=== PATIENT | female | born 1980 | race Caucasian/White ===

== ENCOUNTER 2017-02-12 14:46 | Outpatient (CLI) | payer OTHER ==
[2015-09-27 14:11] VITALS: BP 107/75
== END 2017-02-12 14:48 ==
LOC: LAB 14:46
PROVIDERS: ATTEND Family Medicine
DX: E11.9 Type 2 diabetes mellitus without complications (principal); E03.9 Hypothyroidism, unspecified
CPT/HCPCS: 36415; 83036; 84443

== ENCOUNTER 2017-03-28 11:06 | Outpatient (CLI) | payer OTHER ==
[2015-09-27 14:11] VITALS: BP 107/75
[2017-03-28 12:27] LABS: BASOPHILS % 1.4 (0.0-1.5); EOSINOPHILS % 5.5 % (0.0-6.8); MEAN CORPUSCULAR HEMOGLOBIN 30.7 pg (28.0-34.0); MEAN CORPUSCULAR VOLUME 92.3 fl (80.0-100.0); MONOCYTES % 4.2 % (0.0-11.0); NEUTROPHILS # 3.6 # k/uL (1.4-7.7)
[2017-03-28 12:36] LABS: eGFR (African) > 60; eGFR (Non-African) > 60
--- NOTE | 2017-03-28 15:12 | Diagnostic Imaging Report ---
JOSLYN ELAM [facility] [address] [facility] [address] [address] Report Submission Date: Mar 28, 2017 1:03:42 PM CDT Patient Study Name: JESSICA HIGH Date: Mar 28, 2017 12:18:35 PM CDT Modality Type: CR Gender: F Description: LOWER EXTREMITY : 80 Institution: [facility] Physician: JOSLYN ELAM Examination: Plain film foot History: Autoimmune disease Comparison exams: None available Findings: 2 views of the right and left feet demonstrate normal cortical margins. No fracture. No dislocation. No articular abnormalities. No soft tissue abnormality. Impression: No acute osseous abnormality Electronically signed on Mar 28, 2017 1:03:42 PM CDT by: Kyler AMAYA
--- NOTE | 2017-03-28 15:12 | Diagnostic Imaging Report ---
JOSLYN ELAM [facility] [address] [facility] [address] [place] [address]. [id number] Report Submission Date: Mar 28, 2017 1:05:01 PM CDT Patient Study Name: JESSICA HIGH Date: Mar 28, 2017 12:26:12 PM CDT Modality Type: CR Gender: F Description: PELVIS : 80 Institution: [facility] Physician: JOSLYN ELAM Examination: Plain film hip History: Autoimmune disease Comparison exams: None available Findings: 2 views of the right and left hips demonstrate normal cortical margins. No fracture. No dislocation. No articular abnormalities. No soft tissue abnormality. Few pelvic phleboliths. Impression: No acute osseous abnormality Electronically signed on Mar 28, 2017 1:05:01 PM CDT by: Kyler AMAYA
--- NOTE | 2017-03-28 15:13 | Diagnostic Imaging Report ---
JOSLYN ELAM [facility] [address] [facility] [address] [address] Report Submission Date: Mar 28, 2017 1:02:51 PM CDT Patient Study Name: JESSICA HIGH Date: Mar 28, 2017 12:11:43 PM CDT Modality Type: CR Gender: F Description: UPPER EXTREMITY : 80 Institution: [facility] Physician: JOSLYN ELAM Examination: Plain film hand History: Autoimmune disease Comparison exams: None available Findings: 3 views of the right and left hands demonstrate normal cortical margins. No fracture. No dislocation. No articular abnormalities. No soft tissue abnormality. Impression: No acute osseous abnormality Electronically signed on Mar 28, 2017 1:02:51 PM CDT by: Kyler AMAYA
--- NOTE | 2017-03-31 12:23 | CONSULTATION REPORT ---
REFERRING PHYSICIAN: Isabell Mukherjee MD CONSULTING PHYSICIAN: Austin Sun MD Dear Dr. Mukherjee: HISTORY OF PRESENT ILLNESS: I had the pleasure of meeting Killian Alvarado. This is a 36-year-old white woman who is coming to see me for joint pain. It first occurred at around age 18. Onset has been gradual. She rates it as severe and it involves the hands, knees , ankles, as well as both groins. It is causing her difficulty with all activities of daily living including gripping, walking, and getting in and out of a chair. It seems to be worse at the end of the day but she does have some morning stiffness. She has noted some swelling and some muscle tenderness. The pain again could be 8 over 10 and she has difficulty dressing and getting out of bed, and lots of difficulty with just simply walking. She has difficulty washing, bending, turning her facets on and off, getting in and out of a car, and is unable to walk any significant distance and it also interferes with her sleep. PAST MEDICAL HISTORY: 1. Patient was diagnosed with diabetes in 2012. 2. History of abnormal liver functions and is being followed by [facility]. 3. She has chronic anemia. 4. Chronic headaches. 5. Hypothyroidism. 6. Hypertriglyceridemia. 7. Hyperlipidemia. 8. Gastroparesis. 9. History of Lichen planus with previous high-dose steroid therapy followed by Dr. Candace Isaac. 10. She has had 4 pregnancies. 11. Four C-sections. 12. Zero miscarriages. 13. Cholecystectomy in 2000. . SOCIAL HISTORY: Patient does smoke. She does not drink. She is . 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 FAMILY HISTORY: Father has rheumatoid arthritis and grandma with systemic lupus. ALLERGIES: She reports drug allergies to: 1. Sulfa medications. 2. IV and MRI contrast. 3. Latex. PRESENT MEDICATIONS: 1. Fenofibrate 145 mg daily. 2. Atorvastatin 10 mg daily. 3. Omeprazole 10 mg daily. 4. Levothyroxine 75 mcg daily. 5. Sertraline 100 mg 1-1/2 tablets daily. 6. Levemir 85 units daily. 7. Humulin 25 units daily. REVIEW OF SYSTEMS: Positive for the above, as well as fatigue and weakness, swelling of the legs, nausea, headaches, hands sensitivity, anxiety, depression, and difficulty sleeping. Otherwise, she has had no red painful eyes, dry eyes, no dry mouth or mouth sores. No difficulty swallowing. No hoarseness. She has had no chest pain, shortness of breath, cough, or wheezing. No history of pleurisy. She has had no vomiting. No dark stools or bloody stools or diarrhea. She has had no urinary symptoms such has frothy urine or any vaginal rash or ulcers. She has had no skin rashes, hives, photosensitivity, or color changes in the hands or feet in the cold. PHYSICAL EXAMINATION: GENERAL: She looks well. VITAL SIGNS: Weight is 186. Height: 5 feet 7 inches. T: 97.8, R: 18, heart rate 65, BP: 111/68. HEENT: No alopecia. No stomatitis or glossitis. Good salivary pool. Dentition is in good repair. No parotid or submandibular swelling. No thyroid enlargement. LUNGS: Clear bilaterally with no crackles or wheezing. HEART: Regular rhythm. ABDOMEN: Soft. VASCULAR: No edema or cyanosis. PERIPHERAL JOINTS: No deformities, but just some tenderness at the PIPs and MCPs. Wrists, however, had significant tenderness to palpation. They felt a little warm. 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 Elbows were tender but had full range of motion in extension, flexion, and supination. Shoulders with good abduction and rotation. AC and SC joints were unremarkable. She had pain on internal rotation of both hips and referred to the groin and on the right to her right knee. Both knees were unremarkable. Ankles, hindfoot, midfoot, and forefoot exam was unremarkable. Skin and Nails: No rashes. Nails were unremarkable. IMPRESSION: 1. Polyarthritis. 2. This is an interesting lady who may have a constellation of autoimmune phenomenon. PLAN: I will proceed with [facility] testing. I am updating her CBC, CMP, and sedimentation rate. I will see her back in 4 weeks when I return. We will contemplate the use of Plaquenil if appropriate. DISCUSSION: She was seen by [facility] and at one point a diagnosis of lupus was entertained. She tells me she also had a positive rheumatoid factor on one occasion. No previous x-rays for further investigation was undertaken, so I will proceed as such. 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 Thank you very much. Best regards, cc: Dr. Isabell AMAYA
== END 2017-03-28 11:07 ==
LOC: RHEU 11:06
PROVIDERS: ATTEND Internal Medicine
DX: M13.0 Polyarthritis, unspecified (principal)
CPT/HCPCS: 36415; 73521; 80053; 85025; 85651; 86140; G0463

== ENCOUNTER 2017-04-25 11:05 | Outpatient (CLI) | payer OTHER ==
[2015-09-27 14:11] VITALS: BP 107/75
--- NOTE | 2017-04-25 15:22 | OP Clinic Progress Note ---
REFERRING PHYSICIAN: Dr. Isabell Mukherjee Dear Dr. Mukherjee: REASON FOR VISIT: I had the pleasure of seeing Killian Alvarado in follow up. She has significant joint pain and she rates it at 9 over 10 and it involves the hands, feet, and wrists, as well as ankles. Since I last saw her, she has had no new medical problems. Past medical history is again reviewed and unchanged from my note of March 28 and the same social history, family history, allergies, and present medications. REVIEW OF SYSTEMS: No fevers, chills, sweats, chest pain, shortness of breath, cough, wheezing, nausea, vomiting, or diarrhea. PHYSICAL EXAMINATION: GENERAL: She looks well. VITAL SIGNS: Height: 5 feet 7 inches. Weight: 184. T: 98, R: 12, heart rate 67, BP: 117/76. HEENT: No mal or rash. No alopecia. LUNGS: Clear. HEART: Regular rhythm. ABDOMEN: Soft. VASCULAR: No edema or cyanosis. PERIPHERAL JOINTS: No synovitis, just some tenderness at the PIPs, MCPs, and wrists. DIAGNOSTIC STUDIES: Review of her x-rays show no erosions. Her labs are consistent with probably lupus and a double stranded DNA confirmed by Crithidia of over 1000. Other extractable nuclear antigens were negative. Thyroid antibodies were present. CBC was within normal limits. Sedimentation rate was slightly elevated to 25. Creatinine normal at 0.5. AST was 106 and ALT was 171. Cholesterol and triglycerides were elevated, type 4 overt. Urinalysis had no protein, but did have 2+ blood. IMPRESSION: Patient does probably suffer from lupus, mainly manifesting as joint pain. PLAN: I am instituting Plaquenil 200 mg twice a day and I will re-evaluate her in 3 months. I have asked her to stop taking Tylenol in view of her liver functions and she has continued follow up with the gastrointestinal clinic at the [facility]. Thank you very much for the opportunity to take care of your patients. Best regards, cc: Dr. Isabell AMAYA
== END 2017-04-25 11:15 ==
LOC: RHEU 11:05
PROVIDERS: ATTEND Internal Medicine
DX: M25.50 Pain in unspecified joint (principal)
CPT/HCPCS: 99213; G0463

== ENCOUNTER 2017-05-19 13:14 | Outpatient (CLI) | payer OTHER ==
[2015-09-27 14:11] VITALS: BP 107/75
[2017-05-19 14:28] LABS: eGFR (African) > 60; eGFR (Non-African) > 60
== END 2017-05-19 13:15 ==
LOC: LAB 13:14
PROVIDERS: ATTEND Family Medicine
DX: E11.9 Type 2 diabetes mellitus without complications (principal)
CPT/HCPCS: 36415; 80053; 80061; 82043; 83036

== ENCOUNTER 2017-06-12 20:30 | Emergency (ER) | payer OTHER ==
--- NOTE | 2017-06-12 21:20 | ED Physician Documentation ---
Abdominal Pain - HISTORIAN Historian: patient - HPI Chief Complaint: Abdominal Pain Onset: days ago (7) Duration: worse (3-4 days) Timing: worse Context: denies: out of country travel, bad food, recent trauma Severity: severe Quality: pain Associated Symptoms: nausea. denies: vomiting, coffee ground emesis, bloody emesis, diarrhea, bloody stools, grossly bloody stools, sweating, loss of appetite, chest pain, testicular pain, neck pain Exacerbated by: food Relieved by: nothing Further Comments: yes (36 year old female patient presents with epigastric and LUQ pain. Patient reports pain started 7 days ago and has become progressively worse the past 3-4 days. States her pain is worse with eating solid food. States she is able to keep down liquids. C/O pain radiating into her back, c/o nausea.) - ROS CONST: recent illness (7 days - abd pain) GI/: none CVS/RESP: none EYES/ENT: none MS/SKIN/LYMPH: none NEURO/PSYCH: none - SOCIAL HX Smoking History: cigarettes - FAMILY HX Family History: denies: none - PAST HX Past History: other (IDDM, hypothyroidism, pancreatitis, anemia, elevated triglycerides, depression, lupus) Other History: diabetes Type 2, hyperlipidemia Surgeries/Procedures: colon, Home Medications: Ambulatory Orders Medication Instructions Recorded Atorvastatin Calcium 10 mg PO QDAY 06/12/17 Empagliflozin [Jardiance] 10 mg PO QDAY 06/12/17 Hydroxychloroquine Sulfate 400 mg PO QDAY 06/12/17 Promethazine HCl [Phenergan] 25 mg PO Q6H PRN #30 tablet 06/12/17 Allergies/Adverse Reactions: Allergies Allergy/AdvReac Type Severity Reaction Status Date / Time latex Allergy Unknown Verified 06/12/17 20:59 Sulfa (Sulfonamide Allergy Unknown Verified 06/12/17 20:59 Antibiotics) Penicillins Allergy Verified 06/12/17 20:59 iv contrast Allergy Unknown Uncoded 06/12/17 20:59 - VITAL SIGNS Vital Signs: Vital Signs Temp Pulse Resp BP Pulse Ox 97.8 F 72 16 104/62 98 06/12/17 22:35 06/12/17 22:35 06/12/17 22:35 06/12/17 22:35 06/12/17 22:35 - REVIEWED ASSESSMENTS Nursing Assessment Reviewed: Yes Vitals Reviewed: Yes Progress - Progress Progress: Reviewed lab results with patient. Patient continued to c/o nausea. Promethazine IM given. Reviewed discharge instructions - clear liquids and ADAT. Follow up with GI. Patient scheduled for liver biopsy with GI. ED Results Lab/Radiology - Lab Results Lab Results: Lab Results 06/12/17 06/12/17 06/12/17 21:33 21:33 21:18 WBC 6.97 K/ul K/ul (4.00-12.00) RBC 4.40 M/ul M/ul (3.90-5.20) Hgb 13.1 g/dL g/dL (12.0-16.0) Hct 39.5 % % (34.5-46.5) MCV 89.6 fl fl (80.0-100.0) MCH 29.8 pg pg (28.0-34.0) MCHC 33.2 g/dL g/dL (30.0-36.0) RDW 12.9 % % (11.3-14.3) Plt Count 257 K/mm3 K/mm3 (130-400) Neut % (Auto) 53.6 % % (39.0-79.0) Lymph % (Auto) 32.2 % % (16.0-50.0) [place] % (Auto) 10.3 % % (0.0-11.0) Eos % (Auto) 1.5 % % (0.0-6.8) Baso % (Auto) 0.9 (0.0-1.5) Neut # (Auto) 3.7 # k/uL # k/uL (1.4-7.7) Lymph # (Auto) 2.3 # k/uL # k/uL (0.6-4.0) [place] # (Auto) 0.7 # k/uL # k/uL (0.0-0.9) Eos # (Auto) 0.1 # k/uL # k/uL (0.0-0.6) Baso # (Auto) 0.1 # k/uL # k/uL (0.0-0.5) Reactive Lymphs % Pending Reactive Lymphs # Pending Sodium 135 mmol/L L mmol/L (137-145) Potassium 3.7 mmol/L mmol/L (3.5-5.1) Chloride 104 mmol/L mmol/L (98-107) Carbon Dioxide 24 mmol/L mmol/L (22-30) BUN 15 mg/dL mg/dL (7-17) Creatinine 0.60 mg/dL mg/dL (0.52-1.04) Estimated Creat Clear 185 Est GFR ( Amer) > 60 (60 - ) Est GFR (Non-Af Amer) > 60 (60 - ) Glucose 233 mg/dL H mg/dL (74-106) Calcium 8.6 mg/dL mg/dL (8.4-10.2) Total Bilirubin 0.1 mg/dL L mg/dL (0.2-1.3) AST 123 U/L H U/L (15-46) ALT 160 U/L H U/L (13-69) Alkaline Phosphatase 60 U/L U/L (38-126) Total Protein 7.4 g/dL g/dL (6.3-8.2) Albumin 4.0 g/dL g/dL (3.5-5.0) Lipase 338 U/L H U/L (23-300) - Orders Orders: ED Orders Category Date Time Status Place IV Lock 1T Care 06/12/17 20:45 Active CBC/PLATELET/DIFF Stat Lab 06/12/17 21:33 Results CMP Stat Lab 06/12/17 21:33 Completed LIPASE Stat Lab 06/12/17 21:18 Completed UA W/MICRO IF INDICATED Stat Lab 06/12/17 21:29 Ordered 0.9 % Sodium Chloride [Normal Saline] 1,000 ml Med 06/12/17 21:14 Discontinued IV NOW Ondansetron HCl/Pf [Zofran 4 mg/2 ml] Med 06/12/17 21:14 Discontinued 4 mg IVP NOW ONE Promethazine HCl [Phenergan] Med 06/12/17 22:11 Discontinued 25 mg IM NOW ONE fentaNYL CITRATE/PF [Duragesic] Med 06/12/17 21:14 Discontinued 50 mcg IVP NOW ONE Abdominal Pain Physical Exam - Physical Exam General Appearance: no acute distress EENT: eye inspection normal, TAMIKA RESPIRATORY: no resp distress, chest non-tender, breath sounds normal CVS: reg rate & rhythm, heart sounds normal, equal pulses, no murmur, no gallop , PMI nml, no JVD, no friction rub, 24 ABDOMEN: soft, no organomegaly, normal bowel sounds, no abdominal bruit, no distension, tenderness (epigastric, LUQ) SKIN: normal color, warm/dry, NR, INT, PAL, DR EXTREMITIES: non-tender, normal range of motion, no evidence of injury, no edema , J, TRANSPORT COORDINATOR NEURO: oriented X3, CN's nml as tested, motor nml, sensation nml Vital Signs: Vital Signs Temp Pulse Resp BP Pulse Ox 97.8 F 72 16 104/62 98 06/12/17 22:35 06/12/17 22:35 06/12/17 22:35 06/12/17 22:35 06/12/17 22:35 Discharge Clincal Impression: Nausea & vomiting Qualifiers: Vomiting type: unspecified Vomiting Intractability: non-intractable Qualified Code(s): R11.2 - Nausea with vomiting, unspecified Prescriptions: Promethazine HCl [Phenergan] 25 mg PO Q6H PRN #30 tablet PRN Reason: Nausea / Vomiting Referrals: Isabell Mukherjee MD [Primary Care Provider] - 2 Days Additional Instructions: Diet: Clear liquids Sprite/7-up Juices apple, white grape Gatorade/Powerade Jello Popsicles When tolerating clear liquids, advance to bland/brat diet - such as crackers, rice, Bananas, apples/applesauce or toast Return to the emergency department or call your doctor, if you are having severe abdominal pain, fever >101.0, or if there is blood in the vomit or diarrhea, or you cannot keep down liquids or solid food. If your pain continues , call GI for an appointment. Condition: Stable Disposition: HOME, SELF-CARE Decision to Admit: NO Decision Time: 22:25
[2017-06-12] MEDS: ONDANSETRON HCL/PF 4 MG/ 2ML VIAL IVP ONE (21:36)
[2017-06-12] MEDS: 0.9 % SODIUM CHLORIDE 1,000 ML IV ONE (21:36)
[2017-06-12] MEDS: fentaNYL CITRATE/PF 100 MCG/ 2ML AMP IVP ONE (21:36)
[2017-06-12 21:47] LABS: eGFR (African) > 60; eGFR (Non-African) > 60
[2017-06-12 21:52] LABS: BASOPHILS % 0.9 (0.0-1.5); MEAN CORPUSCULAR HEMOGLOBIN 29.8 pg (28.0-34.0); MEAN CORPUSCULAR VOLUME 89.6 fl (80.0-100.0)
[2017-06-12 21:54] LABS: EOSINOPHILS % 1.5 % (0.0-6.8); MONOCYTES % 10.3 % (0.0-11.0); NEUTROPHILS # 3.7 # k/uL (1.4-7.7)
[2017-06-12] MEDS: PROMETHAZINE HCL 25 MG/ML VIAL IM ONE (22:15)
[2017-06-12 22:45] VITALS: BP 104/62
[2017-06-13 06:49] LABS: APPEARANCE,URINE CLEAR (CLEAR); COLOR,URINE YELLOW (YELLOW); OCCULT BLOOD,URINE NEGATIVE (NEGATIVE); PH URINE 7.5 (5.0 - 8.0); UROBILINOGEN URINE 0.2 Eu (0.2-1.0)
== END 2017-06-12 22:35 | disposition home or self-care (01) ==
LOC: ED 20:30
DX: R11.2 Nausea with vomiting, unspecified (principal)
CPT/HCPCS: 80053; 81002; 83690; 85025; J2405; J2550; J3010; J7030; 96361; 96372; 96374; 96375; 99283; S1016

== ENCOUNTER 2017-07-25 12:31 | Outpatient (CLI) | payer OTHER ==
[2015-09-27 14:11] VITALS: BP 107/75
--- NOTE | 2017-07-28 14:18 | OP Clinic Progress Note ---
REASON FOR VISIT: Killian Morris returns for follow up of systemic lupus. She has noted some improvement. She has been on Plaquenil now for 3 months and has less aches and pains. She did have a rash on her forehead. Since I last saw her, she went to [facility]. She had a liver biopsy and she was found to have some fibrosis and periportal fibrosis. Further testing for hepatitis is apparently pending. She was started on budesonide 3 mg daily and also started on Invokana. Let us recall that the lady tested positive for lupus with a double-stranded DNA of over 1000 international units on March 28 of this year. PAST MEDICAL HISTORY: 1. Diabetes. 2. Anemia. 3. Hypothyroidism. 4. Hyperlipidemia. 5. Gastroparesis. 6. Lichen planus. 7. Cholecystectomy. PRESENT MEDICATIONS: 1. Invokana. 2. Budesonide. 3. Plaquenil 200 mg twice a day. 4. Fenofibrate 145 mg daily. 5. Atorvastatin 10 mg daily. 6. Omeprazole 20 mg daily. 7. Levothyroxine 75 mcg daily. 8. Sertraline. 9. Levemir. 10. Humulin. ALLERGIES: 1. Sulfa. 2. IV and MRI contrast. 3. Latex. REVIEW OF SYSTEMS: No fevers, chills, or sweats. Positive for a rash, now resolved. Positive for joint pain and stiffness. No swelling or deformities. No chest pain. She had an episode of nausea which resolved. No diarrhea or constipation. PHYSICAL EXAMINATION: GENERAL: On exam, she looks well. VITAL SIGNS: Weight: 182. Normotensive. BP: 120/76, R: 18, heart rate 79 , T: 97.3. HEENT: Conjunctivae are pink. No stomatitis or glossitis. LUNGS: Clear. HEART: Regular rhythm. ABDOMEN: Soft and nontender. VASCULAR: No edema. PERIPHERAL JOINTS: No synovitis throughout. DIAGNOSTIC STUDIES: Labs from June 12 were reviewed. Her CBC, white count 6.97, hemoglobin 13.1. Liver functions, AST of 123, ALT of 160, alkaline phosphatase is normal at 60. Urinalysis with no blood or protein. IMPRESSION: 1. Systemic lupus. Continue Plaquenil. 2. Autoimmune hepatitis. PLAN: 1. I would still like records from the [facility]. 2. No other changes today. 3. I will see her back in 3 months. Thank you very much. cc: Dr. Isabell AMAYA
== END 2017-07-25 13:31 ==
LOC: RHEU 12:31
PROVIDERS: ATTEND Internal Medicine
DX: M32.9 Systemic lupus erythematosus, unspecified (principal)
CPT/HCPCS: 99213

== ENCOUNTER 2017-08-04 20:50 | Emergency (ER) | payer OTHER ==
--- NOTE | 2017-08-04 20:58 | ED Physician Documentation ---
Abdominal Pain - HISTORIAN Historian: patient - HPI Stated Complaint: abdominal pain Chief Complaint: Abdominal Pain Onset: hours (1 increased to not tolerable ) Duration: constant Timing: worse Context: other (she has a history of pancreatitis and chronic hepatitis ). denies: out of country travel, bad food, recent trauma Severity: moderate Quality: pain, sharp Associated Symptoms: nausea. denies: fever, chills, vomiting, coffee ground emesis, bloody emesis, diarrhea, bloody stools, grossly bloody stools, mucous Exacerbated by: supine, cough, walking Relieved by: nothing (sitting is less painful ) - ROS CONST: no problems GI/: denies: constipation, black stools, bloody urine, bloody stools, dark urine, problems urinating EYES/ENT: none MS/SKIN/LYMPH: none NEURO/PSYCH: none - SOCIAL HX Smoking History: cigarettes Alcohol Use: none Drug Use: none - FAMILY HX Family History: none - PAST HX Past History: other (hepatitis and pancreatitis ) Ischemic Bowel Risk Factors: denies: valvular disease, elderly, low BP, recent NM, CHF, A-Fib Other History: other Surgeries/Procedures: none Immunizations: referred to PCP Home Medications: Ambulatory Orders Medication Instructions Recorded Atorvastatin Calcium 10 mg PO QDAY 06/12/17 Hydroxychloroquine Sulfate 400 mg PO QDAY 06/12/17 Promethazine HCl [Phenergan] 25 mg PO Q6H PRN #30 tablet 06/12/17 Allergies/Adverse Reactions: Allergies Allergy/AdvReac Type Severity Reaction Status Date / Time latex Allergy Unknown Verified 08/04/17 21:06 Sulfa (Sulfonamide Allergy Unknown Verified 08/04/17 21:06 Antibiotics) iv contrast Allergy Unknown Uncoded 08/04/17 21:06 - VITAL SIGNS Vital Signs: Vital Signs Temp Pulse Resp BP Pulse Ox 98.9 F 82 16 108/73 99 08/04/17 20:50 08/04/17 20:50 08/04/17 20:50 08/04/17 20:50 08/04/17 20:50 - REVIEWED ASSESSMENTS Nursing Assessment Reviewed: Yes Vitals Reviewed: Yes Progress - Progress Progress: Nausea is resolved Pain has resolved ED Results Lab/Radiology - Lab Results Lab Results: Lab Results 08/04/17 08/04/17 21:33 21:32 WBC 7.00 K/ul K/ul (4.00-12.00) RBC 4.47 M/ul M/ul (3.90-5.20) Hgb 13.0 g/dL g/dL (12.0-16.0) Hct 41.5 % % (34.5-46.5) MCV 93.0 fl fl (80.0-100.0) MCH 29.1 pg pg (28.0-34.0) MCHC 31.3 g/dL g/dL (30.0-36.0) RDW 12.8 % % (11.3-14.3) Plt Count 273 K/mm3 K/mm3 (130-400) Neut % (Auto) 56.0 % % (39.0-79.0) Lymph % (Auto) 34.2 % % (16.0-50.0) [place] % (Auto) 4.0 % % (0.0-11.0) Eos % (Auto) 4.2 % % (0.0-6.8) Baso % (Auto) 0.6 (0.0-1.5) Neut # (Auto) 3.9 # k/uL # k/uL (1.4-7.7) Lymph # (Auto) 2.4 # k/uL # k/uL (0.6-4.0) [place] # (Auto) 0.3 # k/uL # k/uL (0.0-0.9) Eos # (Auto) 0.3 # k/uL # k/uL (0.0-0.6) Baso # (Auto) 0.0 # k/uL # k/uL (0.0-0.5) Reactive Lymphs % 1.0 % % (0.0-5.0) Reactive Lymphs # 0.1 # k/uL # k/uL (0.0-0.8) Sodium 136 mmol/L mmol/L (136-145) Potassium 3.8 mmol/L mmol/L (3.5-5.1) Chloride 102 mmol/L mmol/L (98-107) Carbon Dioxide 23 mmol/L mmol/L (22-30) BUN 14 mg/dL mg/dL (7-17) Creatinine 0.70 mg/dL mg/dL (0.52-1.04) Estimated Creat Clear 171 Est GFR ( Amer) > 60 (60 - ) Est GFR (Non-Af Amer) > 60 (60 - ) Glucose 392 mg/dL H mg/dL (74-106) Calcium 9.1 mg/dL mg/dL (8.4-10.2) Total Bilirubin < 0.1 mg/dL L mg/dL (0.2-1.3) AST 27 U/L U/L (15-46) ALT 39 U/L U/L (13-69) Alkaline Phosphatase 39 U/L U/L (38-126) Total Protein 7.5 g/dL g/dL (6.3-8.2) Albumin 4.1 g/dL g/dL (3.5-5.0) Lipase 393 U/L H U/L (23-300) - Radiology Radiology Impressions: CT of the abdomen and pelvis without contrast Clinical history: EPIGASTRIC AND LLQ ABD PAIN, PT STATES HX OF PANCREATITIS Technique: CT examination the abdomen and pelvis was performed without oral or intravenous administration of contrast. Sagittal and coronal reconstructions are performed by the technologist. Findings: There is minimal dependent atelectasis in the lung bases. The liver and spleen demonstrate normal attenuation without focal defect. Gallbladder is surgically absent. There is no pancreatic or adrenal abnormality. The kidneys are of normal size, shape and position. There is no hydronephrosis or perinephric stranding. There is no retroperitoneal mass or significant adenopathy. Small umbilical hernia is present containing only fat. The appendix identified and is within normal limits. Structures related to the gastrointestinal tract are unremarkable. Small amount of free fluid is seen in the pelvis that is likely physiologic. Bladder is unremarkable. Impression: 1. Small amount of free fluid in the pelvis that appears physiologic. 2. Postoperative changes. 3. Negative appendix. 4. Small umbilical hernia. - Orders Orders: ED Orders Category Date Time Status IV [Remove IV/Saline Lock] 1T Care 08/04/17 21:[address] IV Lock 1T Care 08/04/17 21:[address] ABD & PELVIS W/O CON Stat Exams 08/04/17 Taken CBC/PLATELET/DIFF Stat Lab 08/04/17 21:33 Completed CMP Stat Lab 08/04/17 21:32 Completed LIPASE Stat Lab 08/04/17 21:32 Completed UA W/MICRO IF INDICATED Routine Lab 08/04/17 21:02 Ordered URINE HCG Stat Lab 08/04/17 Ordered 0.9 % Sodium Chloride [Normal Saline] 1,000 ml Med 08/04/17 21:04 Discontinued IV Q1H Ondansetron HCl/Pf [Zofran 4 mg/2 ml] Med 08/04/17 21:40 Discontinued 4 mg IVP NOW ONE fentaNYL CITRATE/PF [Duragesic] Med 08/04/17 21:56 Discontinued 50 mcg IVP NOW ONE Abdominal Pain Physical Exam - Physical Exam General Appearance: alert, mild distress EENT: eye inspection normal NECK: normal inspection RESPIRATORY: no resp distress, chest non-tender, breath sounds normal CVS: reg rate & rhythm, heart sounds normal, equal pulses, no murmur ABDOMEN: soft, normal bowel sounds, tenderness (mid abdomen and right upper quad pain - left lower pelvic pain ), guarding. No: distended BACK: normal inspection, no CVA tenderness SKIN: warm/dry, normal color EXTREMITIES: non-tender, normal range of motion, no evidence of injury, no edema NEURO: oriented X3, CN's nml as tested, motor nml, sensation nml Vital Signs: Vital Signs Temp Pulse Resp BP Pulse Ox 98.9 F 82 16 108/73 99 08/04/17 20:50 08/04/17 20:50 08/04/17 20:50 08/04/17 20:50 08/04/17 20:50 Discharge Clincal Impression: Abdominal pain Qualifiers: Abdominal location: generalized Qualified Code(s): R10.84 - Generalized abdominal pain Referrals: Isabell Mukherjee MD [Primary Care Provider] - 2 Days Comments: Call GI specialist in am Continue meds - she states she has zofran and phenergan at home so she did not need a prescription IF symptoms increase: N/V/D or fever return to ER Notify PCP Take insulin as prescribed Condition: Stable Disposition: 01 HOME, SELF-CARE Decision to Admit: NO Date of Decison to Admit: 08/04/17 Decision Time: 22:39
[2017-08-04] MEDS ORDERED: 0.9 % SODIUM CHLORIDE 1,000 ML IV ONE (21:04)
[2017-08-04 21:38] LABS: BASOPHILS % 0.6 (0.0-1.5); EOSINOPHILS % 4.2 % (0.0-6.8); MEAN CORPUSCULAR HEMOGLOBIN 29.1 pg (28.0-34.0); NEUTROPHILS # 3.9 # k/uL (1.4-7.7)
[2017-08-04] MEDS ORDERED: ONDANSETRON HCL/PF 4 MG/ 2ML VIAL IVP ONE (21:40)
[2017-08-04 21:46] LABS: eGFR (African) > 60; eGFR (Non-African) > 60
[2017-08-04] MEDS ORDERED: fentaNYL CITRATE/PF 100 MCG/ 2ML AMP IVP ONE (21:56)
[2017-08-04 22:51] VITALS: BP 113/73
--- NOTE | 2017-08-05 06:44 | Diagnostic Imaging Report ---
[facility] [address] [facility] [address] [place], [place]. [address] Report Submission Date: Aug 04, 2017 10:35:34 PM E COMMERCE MANAGER Patient Study Name: JESSICA HIGH Date: Aug 04, 2017 10:07:38 PM E COMMERCE MANAGER Modality Type: CT\SR Gender: F Description: CT ABD & PELVIS W/O CO : 80 Institution: [facility] Physician: LAN HOSKINS CT of the abdomen and pelvis without contrast Clinical history: EPIGASTRIC AND LLQ ABD PAIN, PT STATES HX OF PANCREATITIS Technique: CT examination the abdomen and pelvis was performed without oral or intravenous administration of contrast. Sagittal and coronal reconstructions are performed by the technologist. Findings: There is minimal dependent atelectasis in the lung bases. The liver and spleen demonstrate normal attenuation without focal defect. Gallbladder is surgically absent. There is no pancreatic or adrenal abnormality. The kidneys are of normal size, shape and position. There is no hydronephrosis or perinephric stranding. There is no retroperitoneal mass or significant adenopathy. Small umbilical hernia is present containing only fat. The appendix identified and is within normal limits. Structures related to the gastrointestinal tract are unremarkable. Small amount of free fluid is seen in the pelvis that is likely physiologic. Bladder is unremarkable. Impression: 1. Small amount of free fluid in the pelvis that appears physiologic. 2. Postoperative changes. 3. Negative appendix. 4. Small umbilical hernia. Electronically signed on Aug 04, 2017 10:35:34 PM E COMMERCE MANAGER by: Vikas AMAYA
[2017-08-05 08:15] LABS: APPEARANCE,URINE CLEAR (CLEAR); COLOR,URINE YELLOW (YELLOW)
[2017-08-05 08:16] LABS: OCCULT BLOOD,URINE NEGATIVE (NEGATIVE); PH URINE 6.5 (5.0 - 8.0); UROBILINOGEN URINE 0.2 Eu (0.2-1.0)
== END 2017-08-04 22:50 | disposition home or self-care (01) ==
LOC: ED 20:50
DX: R10.84 Generalized abdominal pain (principal)
CPT/HCPCS: 74176; 80053; 83690; 85025; J2405; J3010; J7030; 81002; 81025; 96361; 96374; 96375; 99283; S1016

== ENCOUNTER 2017-08-07 11:52 | Outpatient (CLI) | payer OTHER | END 2017-08-07 11:53 | LOC: LAB 11:52 | PROVIDERS: ATTEND Psychiatry & Neurology Psychiatry | DX: R74.8 Abnormal levels of other serum enzymes (principal) | CPT/HCPCS: 36415; 82657 ==

== ENCOUNTER 2017-09-14 16:09 | Emergency (ER) | payer OTHER ==
[2017-09-14 16:40] LABS: BASOPHILS % 0.7 (0.0-1.5); EOSINOPHILS % 5.6 % (0.0-6.8); MEAN CORPUSCULAR HEMOGLOBIN 28.4 pg (28.0-34.0); MONOCYTES % 4.1 % (0.0-11.0); NEUTROPHILS # 3.3 # k/uL (1.4-7.7)
[2017-09-14 16:58] LABS: eGFR (African) > 60; eGFR (Non-African) > 60
--- NOTE | 2017-09-14 17:13 | ED Physician Documentation ---
Abdominal Pain - HISTORIAN Historian: patient - HPI Stated Complaint: Abdominal Pain Chief Complaint: Abdominal Pain Onset: days ago Duration: worse Timing: worse Context: denies: out of country travel, bad food, recent trauma Severity: moderate Quality: pain Associated Symptoms: diarrhea (reported). denies: fever, chills, nausea, vomiting Exacerbated by: nothing Relieved by: nothing Further Comments: yes (37 year old female presents with complaint of adominal pain. Patient was discharged from [facility] on Friday09/12/17 with chronic pancreatitis. Patient has been using oxycodone for pain. Last regular BM, Fri09/09/17; patient reports diarrhea yesterday.) - ROS CONST: recent illness (in patient pancreatitis at [facility]) GI/: none CVS/RESP: none EYES/ENT: none MS/SKIN/LYMPH: none NEURO/PSYCH: none - SOCIAL HX Smoking History: cigarettes - FAMILY HX Family History: denies: none - PAST HX Past History: other (Lupus, IDDM, hypothyroidism, depression, elevated triglycerides, HLD) Ischemic Bowel Risk Factors: other (chronic pancreatitis, ) Other History: diabetes Type 2 Home Medications: Ambulatory Orders Medication Instructions Recorded Atorvastatin Calcium 10 mg PO QDAY 06/12/17 Hydroxychloroquine Sulfate 400 mg PO QDAY 06/12/17 Insulin Regular, Human [Humulin R] 09/14/17 Allergies/Adverse Reactions: Allergies Allergy/AdvReac Type Severity Reaction Status Date / Time latex Allergy Unknown Verified 08/04/17 21:06 Sulfa (Sulfonamide Allergy Unknown Verified 08/04/17 21:06 Antibiotics) iv contrast Allergy Unknown Uncoded 08/04/17 21:06 - VITAL SIGNS Vital Signs: Vital Signs Temp Pulse Resp BP Pulse Ox 98.1 F 90 16 106/61 96 09/14/17 16:10 09/14/17 16:10 09/14/17 16:10 09/14/17 16:10 09/14/17 16:10 - REVIEWED ASSESSMENTS Nursing Assessment Reviewed: Yes Vitals Reviewed: Yes Progress - Progress Progress: Reviewed lab and xray findings with patient. Reviewed discharge instructions with patient. Verbalized understanding. ED Results Lab/Radiology - Lab Results Lab Results: Lab Results 09/14/17 09/14/17 16:36 16:36 WBC 6.50 K/ul K/ul (4.00-12.00) RBC 3.81 M/ul L M/ul (3.90-5.20) Hgb 10.8 g/dL L g/dL (12.0-16.0) Hct 36.2 % % (34.5-46.5) MCV 95.0 fl fl (80.0-100.0) MCH 28.4 pg pg (28.0-34.0) MCHC 29.9 g/dL L g/dL (30.0-36.0) RDW 12.9 % % (11.3-14.3) Plt Count 321 K/mm3 K/mm3 (130-400) Neut % (Auto) 50.1 % % (39.0-79.0) Lymph % (Auto) 38.1 % % (16.0-50.0) Long % (Auto) 4.1 % % (0.0-11.0) Eos % (Auto) 5.6 % % (0.0-6.8) Baso % (Auto) 0.7 (0.0-1.5) Neut # (Auto) 3.3 # k/uL # k/uL (1.4-7.7) Lymph # (Auto) 2.5 # k/uL # k/uL (0.6-4.0) Long # (Auto) 0.3 # k/uL # k/uL (0.0-0.9) Eos # (Auto) 0.4 # k/uL # k/uL (0.0-0.6) Baso # (Auto) 0.0 # k/uL # k/uL (0.0-0.5) Reactive Lymphs % 1.4 % % (0.0-5.0) Reactive Lymphs # 0.1 # k/uL # k/uL (0.0-0.8) Sodium 135 mmol/L L mmol/L (136-145) Potassium 3.4 mmol/L L mmol/L (3.5-5.1) Chloride 98 mmol/L mmol/L (98-107) Carbon Dioxide 28 mmol/L mmol/L (22-30) BUN 7 mg/dL mg/dL (7-17) Creatinine 0.60 mg/dL mg/dL (0.52-1.04) Estimated Creat Clear 205 Est GFR ( Amer) > 60 (60 - ) Est GFR (Non-Af Amer) > 60 (60 - ) Glucose 285 mg/dL H mg/dL (74-106) Calcium 8.6 mg/dL mg/dL (8.4-10.2) Total Bilirubin 0.2 mg/dL mg/dL (0.2-1.3) AST 29 U/L U/L (15-46) ALT 37 U/L U/L (13-69) Alkaline Phosphatase 36 U/L L U/L (38-126) Total Protein 6.9 g/dL g/dL (6.3-8.2) Albumin 3.7 g/dL g/dL (3.5-5.0) - Radiology Radiology Impressions: Constipation DRINK 1/2 BOTTLE OF MAGNESIUM CITRATE TONIGHT AND 1/2 BOTTLE IN THE MORNING. Use gas-ex or simethicone as needed per package instructions for gas pain. Increase the amount of~high-fiber foods~in your diet. Choose more whole grain breads, cereals and rice. Select more raw fruits and vegetables -- eat the peel, if appropriate. Drink six to eight glasses of water each day. Limit highly refined and processed foods. Over the counter Laxative as needed Return to the emergency department or call your doctor, if you have fever >101.0 , or if there is blood in the vomit or diarrhea, or you cannot keep down liquids or solid food. - Orders Orders: ED Orders Category Date Time Status ABDOMEN COMPLETE [RAD] Stat Exams 09/14/17 Taken CBC/PLATELET/DIFF Stat Lab 09/14/17 16:36 Completed CMP Stat Lab 09/14/17 16:36 Completed Abdominal Pain Physical Exam - Physical Exam General Appearance: mild distress EENT: eye inspection normal, TAMIKA RESPIRATORY: no resp distress, chest non-tender, breath sounds normal CVS: reg rate & rhythm, heart sounds normal, equal pulses, no murmur, no gallop , PMI nml, no JVD, no friction rub, 24 ABDOMEN: soft, no organomegaly, no abdominal bruit, no distension, tenderness ( periumbilical and upper quadrants - correlates with areas of constipation on xray), abnormal bowel sounds (hypoactive), decreased BS. 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
--- NOTE | 2017-09-14 17:28 | Diagnostic Imaging Report ---
[facility] [address] [facility].[address] [address] Report Submission Date: Sep 14, 2017 5:10:22 PM AWAKE OVERNIGHT MONITOR Patient Study Name: JESSICA HIGH Date: Sep 14, 2017 4:46:09 PM AWAKE OVERNIGHT MONITOR Modality Type: CR Gender: F Description: ABDOMEN : 80 Institution: [facility] Physician: GOGO CONWAY (GLASS CLEANER) - ER Examination: Obstruction series History: Abdominal discomfort Findings: 4 views obtained of the abdomen. No abnormal dilation of the large or small bowel. Significant stool throughout the large bowel. No suspicious calcification projecting over the renal fossa or the lower pelvic region. Surgical clips right upper quadrant. Osseous structures are appropriate for age. Lumbar curvature to the right. Impression: Significant large bowel stool - constipation. No obstruction. No suspicious calcifications by plain film sensitivity. Electronically signed on Sep 14, 2017 5:10:22 PM AWAKE OVERNIGHT MONITOR by: Kyler AMAYA
[2017-09-14 17:35] VITALS: BP 115/80
[2017-09-15 06:49] LABS: APPEARANCE,URINE CLEAR (CLEAR); COLOR,URINE YELLOW (YELLOW)
[2017-09-15 06:50] LABS: OCCULT BLOOD,URINE NEGATIVE (NEGATIVE); UROBILINOGEN URINE 0.2 Eu (0.2-1.0)
== END 2017-09-14 17:21 | disposition home or self-care (01) ==
LOC: ED 16:09
DX: K59.03 Drug induced constipation (principal); Z87.898 Personal history of other specified conditions
CPT/HCPCS: 74020; 80053; 81002; 85025; 99282; 99283; S1016

== ENCOUNTER 2017-11-21 10:09 | Outpatient (CLI) | payer OTHER ==
--- NOTE | 2017-11-26 12:53 | OP Clinic Progress Note ---
REASON FOR VISIT: Killian Alvarado is a lady with systemic lupus. She has been on Plaquenil 200 mg twice a day for a year now and she has done well with no aches or pains or joint discomfort. She, however, comes today with a rash on her forearms and thighs that is itchy and raised. It has been present since September and slowly worsening. She was seen by [facility] and had a liver biopsy and she does have some abnormal findings consistent with autoimmune hepatitis. She was started on Imuran 50 mg once a day with normalization of her liver functions. The last LFTs I have for review are dated from September 14, with an AST of 29, ALT of 37, alkaline phosphatase of 36, albumin 3.7. Note, her creatinine at that time was 0.60. She has mild anemia with a hemoglobin of 10.8, white count was 6.5,and platelets were 321,000. She was also hospitalized in September for diabetic ketoacidosis. She received hepatitis A vaccination and they are evaluating her for re- vaccination for hepatitis B. PAST MEDICAL HISTORY: 1. Diabetes. 2. Anemia. 3. Hypothyroidism. 4. Hyperlipidemia. 5. Gastroparesis. 6. Lichen Planus. 7. Cholecystectomy. 8. Pancreatitis. 9. Autoimmune hepatitis. 10. Chronic immunosuppression. PRESENT MEDICATIONS: 1. Plaquenil 200 mg twice a day. 2. Imuran 50 mg daily. 3. Invokana. 4. Fenofibrate. 5. Atorvastatin. 6. Omeprazole. 7. Levothyroxine. 8. Sertraline. 9. Levemir. 10. Humulin. ALLERGIES: 1. Sulfa. 2. IV contrast. 3. MRI contrast. 4. Latex. REVIEW OF SYSTEMS: Otherwise, on review of systems, aside from the rash, she has had no fevers, chills, or sweats. No ulcers. No chest pain, shortness of breath, cough or wheezing. No leg swelling. No change in her urine. PHYSICAL EXAMINATION: General: She looks well. VITAL SIGNS: BP: 125/80, heart rate 77, R: 20, T: 97. Height: 5 feet 7 inches. Weight: 196 pounds. HEENT: Sclerae are anicteric. Conjunctivae are pink. No stomatitis or glossitis. LUNGS: Clear bilaterally with no crackles or wheezing. HEART: Regular rhythm. ABDOMEN: Soft and nontender. VASCULAR: No edema or cyanosis. PERIPHERAL JOINTS: No synovitis or deformities. Skin: Punctate lesions of the forearms with some hyperpigmentation and elevation. IMPRESSION: 1. Systemic lupus, on Plaquenil and presently Imuran. 2. Autoimmune hepatitis. 3. Anemia. 4. Rash. 5. Chronic immunosuppression. PLAN: 1. I am going to check her Avise lupus monitoring. 2. Monitor her double-stranded DNA level and complements. 3. I will see her back in 2 months. 4. I am making arrangements for a stat Dermatology consultation for biopsy of her skin lesions. cc: Dr. Isabell AMAYA
== END 2017-11-21 13:27 ==
LOC: RHEU 10:09
PROVIDERS: ATTEND Internal Medicine
DX: M32.9 Systemic lupus erythematosus, unspecified (principal); K75.4 Autoimmune hepatitis; D64.9 Anemia, unspecified; R21 Rash and other nonspecific skin eruption; D89.9 Disorder involving the immune mechanism, unspecified
CPT/HCPCS: 36415; 99213; 99214

== ENCOUNTER 2018-01-23 11:01 | Outpatient (CLI) | payer OTHER ==
--- NOTE | 2018-01-26 10:01 | OP Clinic Progress Note ---
REASON FOR VISIT: Killian Alvarado is a lady with systemic lupus and from that point of view, she is doing well with no joint swelling, pain, discomfort, or fatigue. The rash that she had at her last visit is worsening. It is now on both forearms, thighs, as well as the back. It is itchy, raised, and punctate. She has a Dermatology consultation appointment in the very near future. She has autoimmune hepatitis. Her liver functions have improved and she brings in labs from yesterday. It shows her hemoglobin has improved from 10.8 to 11.4. Her liver functions are normal and those were scanned into her chart. Diabetes has been doing well. Her last hospital admission for diabetic ketoacidosis was in September. She is up to date on her vaccination of A and B. PAST MEDICAL HISTORY: 1. Diabetes. 2. Anemia. 3. Hypothyroidism. 4. Hyperlipidemia. 5. Gastroparesis. 6. Lichen planus. 7. Cholecystectomy. 8. Pancreatitis. 9. Autoimmune hepatitis. 10. Chronic immunosuppression. 11. Systemic lupus. PRESENT MEDICATIONS: 1. Plaquenil 200 mg twice a day. 2. Imuran 50 mg daily. 3. Fenofibrate. 4. Atorvastatin. 5. Omeprazole. 6. Levothyroxine. 7. Sertraline. 8. Levemir. 9. Humulin. ALLERGIES: She is allergic to: 1. Sulfa drugs. 2. IV contrast. 3. MRI contrast. 4. Lasix. REVIEW OF SYSTEMS: As per HPI. PHYSICAL EXAMINATION: VITAL SIGNS: Height: 5 feet 7 inches. Weight: 188. T: 97.2, R: 18, heart rate 80, BP: 113/75. HEENT: Sclerae are anicteric. Conjunctivae are pink. No stomatitis or glossitis. No Alopecia. External ears and nose are unremarkable. No parotid swelling. LUNGS: Clear bilaterally with no crackles or wheezing. HEART: Regular rate and rhythm. ABDOMEN: Soft and nontender. VASCULAR: No edema or cyanosis. PERIPHERAL JOINTS: Right and left upper extremities, no synovitis. No tenderness. Good range of motion. SKIN: Fine pea-sized lesions on arms and thorax, slightly indurated. No palpable purpura. LABORATORY: Her last AVISE testing, double-stranded DNA was less than 10. Complement levels were normal. Note her Plaquenil level was subtherapeutic. IMPRESSION: 1. Systemic lupus, doing well since she is on Imuran. Plaquenil is subtherapeutic. 2. Skin rash. PLAN: 1. I am stopping her Plaquenil. 2. Eagerly await the results of the skin biopsy. 3. She is seeing her liver specialist in July. I will see her back in 4 months. No need for labs today. Thank you very much. Best regards, cc: Dr. Isabell AMAYA
== END 2018-01-23 12:34 ==
LOC: RHEU 11:01
PROVIDERS: ATTEND Internal Medicine
DX: M32.9 Systemic lupus erythematosus, unspecified (principal); R21 Rash and other nonspecific skin eruption
CPT/HCPCS: 99213; 99214

== ENCOUNTER 2018-04-26 21:48 | Emergency (ER) | payer OTHER ==
[2018-04-26] MEDS ORDERED: ONDANSETRON HCL/PF 4 MG/ 2ML VIAL IVP ONE (22:20)
[2018-04-26] MEDS ORDERED: 0.9 % SODIUM CHLORIDE 1,000 ML IV SCH (22:30)
[2018-04-26] MEDS ORDERED: 0.9 % SODIUM CHLORIDE 1,000 ML IV ONE (22:39)
[2018-04-26 22:40] LABS: BASOPHILS % 0.5 (0.0-1.5); EOSINOPHILS % 6.6 % (0.0-6.8); MEAN CORPUSCULAR HEMOGLOBIN 22.6 pg (28.0-34.0); MONOCYTES % 2.5 % (0.0-11.0); NEUTROPHILS # 3.7 # k/uL (1.4-7.7)
[2018-04-26 22:49] LABS: eGFR (African) > 60; eGFR (Non-African) > 60
[2018-04-26] MEDS ORDERED: INSULIN REGULAR, HUMAN 100 UNIT/ML 3ML VIAL IV ONE (23:25)
[2018-04-26] MEDS ORDERED: KETOROLAC TROMETHAMINE 30 MG/1ML VIAL IVP ONE (23:26)
--- NOTE | 2018-04-27 00:04 | ED Physician Documentation ---
General Adult - HISTORIAN Historian: patient - HPI Stated Complaint: RT SIDE ABD PAIN Chief Complaint: Flank Pain Onset: days ago (2) Timing: still present, worse Severity: moderate Further Comments: yes (She states she started a day or two ago with mid abdominal pain and now today the pain is focused on the right flank. She states currently 06/17 she has tried OTC meds with no relief. No blood in urine is visable. she is a diabetic but states "high for me is too high to read" and reports she is "usually running in the 300-400's" She has had some nasuea with pain . Denies any other complaints) - ROS CONST: no problems EYES/ENT: none GI/: abdominal pain, nausea. denies: problems urinating, vomiting (she did vomit a few times yesterday ) NEURO/PSYCH: headache - PAST HX Past History: other (diabetes, Hep C, anxiety ) Other History: diabetes Type 2 Surgeries/Procedures: other (c section ) Immunizations: UTD Allergies/Adverse Reactions: Allergies Allergy/AdvReac Type Severity Reaction Status Date / Time latex Allergy Unknown Verified 09/14/17 17:37 Sulfa (Sulfonamide Allergy Unknown Verified 09/14/17 17:37 Antibiotics) iv contrast Allergy Unknown Uncoded 08/04/17 21:06 Home Medications: Ambulatory Orders Medication Instructions Recorded Azathioprine [Imuran] 50 mg PO D 04/26/18 Calcium Carbonate [Calcium] 600 mg PO D 04/26/18 Insulin Glargine,Hum.rec.anlog 45 units SQ HS 04/26/18 [Lantus] Insulin Regular, Human [Afrezza] 1 unit SQ DIRECTED 04/26/18 - SOCIAL HX Smoking History: non-smoker Alcohol Use: none Drug Use: none - FAMILY HX Family History: No - VITAL SIGNS Vital Signs: Vital Signs Temp Pulse Resp BP Pulse Ox 98.4 F 70 16 121/85 100 04/26/18 21:48 04/26/18 21:48 04/26/18 21:48 04/26/18 21:48 04/26/18 21:48 - REVIEWED ASSESSMENTS Nursing Assessment Reviewed: Yes Vitals Reviewed: Yes Progress - Progress Progress: 2300: Mild relief in nausea although she states the pain is continuing. Awaiting results of scanDG 2350: she reports nausea is "about the same" and she reports "some relief" in her pain. She is aware of results and plan - she is agreeable DG ED Results Lab/Radiology - Lab Results Lab Results: Lab Results 04/26/18 04/26/18 04/26/18 22:34 22:34 22:34 WBC RBC Hgb Hct MCV MCH MCHC RDW Plt Count Neut % (Auto) Lymph % (Auto) [place] % (Auto) Eos % (Auto) Baso % (Auto) Neut # (Auto) Lymph # (Auto) [place] # (Auto) Eos # (Auto) Baso # (Auto) Reactive Lymphs % Reactive Lymphs # Sodium 135 mmol/L L mmol/L (136-145) Potassium 3.6 mmol/L mmol/L (3.5-5.1) Chloride 100 mmol/L mmol/L (98-107) Carbon Dioxide 22 mmol/L mmol/L (22-30) BUN 11 mg/dL mg/dL (7-17) Creatinine 0.60 mg/dL mg/dL (0.52-1.04) Est GFR ( Amer) > 60 (60 - ) Est GFR (Non-Af Amer) > 60 (60 - ) Glucose 408 mg/dL H mg/dL (74-106) Calcium 9.2 mg/dL mg/dL (8.4-10.2) Total Bilirubin < 0.1 mg/dL L mg/dL (0.2-1.3) AST 17 U/L U/L (15-46) ALT 22 U/L U/L (13-69) Alkaline Phosphatase 60 U/L U/L (38-126) Total Protein 8.6 g/dL H g/dL (6.3-8.2) Albumin 4.8 g/dL g/dL (3.5-5.0) Lipase 215 U/L U/L (23-300) Serum HCG, Qual Negative (NEGATIVE) 04/26/18 22:34 WBC 7.40 K/ul K/ul (4.00-12.00) RBC 4.48 M/ul M/ul (3.90-5.20) Hgb 10.1 g/dL L g/dL (12.0-16.0) Hct 34.5 % % (34.5-46.5) MCV 77.0 fl L fl (80.0-100.0) MCH 22.6 pg L pg (28.0-34.0) MCHC 29.3 g/dL L g/dL (30.0-36.0) RDW 15.8 % H % (11.3-14.3) Plt Count 355 K/mm3 K/mm3 (130-400) Neut % (Auto) 50.5 % % (39.0-79.0) Lymph % (Auto) 38.8 % % (16.0-50.0) [place] % (Auto) 2.5 % % (0.0-11.0) Eos % (Auto) 6.6 % % (0.0-6.8) Baso % (Auto) 0.5 (0.0-1.5) Neut # (Auto) 3.7 # k/uL # k/uL (1.4-7.7) Lymph # (Auto) 2.9 # k/uL # k/uL (0.6-4.0) [place] # (Auto) 0.2 # k/uL # k/uL (0.0-0.9) Eos # (Auto) 0.5 # k/uL # k/uL (0.0-0.6) Baso # (Auto) 0.0 # k/uL # k/uL (0.0-0.5) Reactive Lymphs % 1.1 % % (0.0-5.0) Reactive Lymphs # 0.1 # k/uL # k/uL (0.0-0.8) Sodium Potassium Chloride Carbon Dioxide BUN Creatinine Est GFR ( Amer) Est GFR (Non-Af Amer) Glucose Calcium Total Bilirubin AST ALT Alkaline Phosphatase Total Protein Albumin Lipase Serum HCG, Qual - Orders Orders: ED Orders Category Date Time Status IV Started NOW Care 04/26/18 22:[address] ABD & PELVIS W/O CON Stat Exams 04/26/18 Taken CBC/PLATELET/DIFF Routine Lab 04/26/18 22:34 Completed CMP Routine Lab 04/26/18 22:34 Completed LIPASE Stat Lab 04/26/18 22:34 Completed SERUM HCG Routine Lab 04/26/18 22:34 Completed URINALYSIS Routine Lab 04/26/18 Ordered 0.9 % Sodium Chloride [Normal Saline] 1,000 ml Med 04/26/18 22:30 Ordered IV Q10H Chem Sticks Med 04/27/18 22:15 Once 1 each MC CHEMQ ONE Insulin Regular, Human [Humulin R] Med 04/26/18 23:25 Discontinued 10 unit IV NOW ONE Ketorolac Tromethamine [Toradol] Med 04/26/18 23:26 Discontinued 30 mg IVP NOW ONE Ondansetron HCl/Pf [Zofran 4 mg/2 ml] Med 04/26/18 22:20 Discontinued 4 mg IVP NOW ONE EKG WITH COMPARISON Stat Ther 04/26/18 Ordered General Adult Physical Exam - PHYSICAL EXAM GENERAL APPEARANCE: mild distress EENT: eye inspection normal, ENT inspection normal NECK: normal inspection RESPIRATORY: no resp distress, chest non-tender, breath sounds normal CVS: reg rate & rhythm, heart sounds normal, no murmur ABDOMEN: soft, normal bowel sounds, no distension, other (tenderness on RUQ and flank with palpation ) BACK: normal inspection, CVA tenderness (R) SKIN: warm/dry, normal color EXTREMITIES: non-tender, normal range of motion, no evidence of injury, no edema NEURO: oriented X3 Discharge Clincal Impression: Kidney stone Diabetes Qualifiers: Diabetes mellitus type: type 2 Diabetes mellitus residential insulin use: unspecified residential insulin use status Diabetes mellitus complication status: with hyperglycemia Qualified Code(s): E11.65 - Type 2 diabetes mellitus with hyperglycemia Referrals: Isabell Mukherjee MD [Primary Care Provider] - 2 Days Comments: 1. Torodol 10 mg Take 1 by mouth every 8 hours as needed for pain 2. Increase fluids 3. Flomax 0.4 mg take 1 by mouth daily 4. Zofran 4 mg take 1 by mouth every 8 hours as needed for nausea 5. Take insulin as directed - notify dr of blood sugars 6. Strain urine 7. Return to ER for any concerns Condition: Stable Disposition: 01 HOME, SELF-CARE Decision to Admit: NO Date of Decison to Admit: 04/27/18 Decision Time: 00:08
[2018-04-27] MEDS ORDERED: TAMSULOSIN HCL 0.4 MG CAP.ER.24H PO ONE (00:11)
[2018-04-27 01:48] VITALS: BP 120/79
--- NOTE | 2018-04-27 06:39 | Diagnostic Imaging Report ---
LAN HOSKINS [facility] [address] [facility] [address] [place], [place]. [address] Report Submission Date: Apr 26, 2018 11:19:53 PM CDT Patient Study Name: JESSICA HIGH Date: Apr 26, 2018 10:57:22 PM CDT Modality Type: CT\SR Gender: F Description: CT ABD PELVIS W/O CO : 80 Institution: [facility] Physician: LAN HOSKINS CT abdomen pelvis without contrast History: Right upper quadrant pain. Technique: Transaxial computed tomographic images of the abdomen pelvis were obtained without the use of intravenous contrast according to standard protocol. Findings: The heart size is normal. The lung bases are clear. The liver is normal in density. The gallbladder is absent. The pancreas spleen and adrenal glands are normal. Kidneys are symmetric in size. There is a 2 mm calculus in the mid zone of the right kidney and inferior pole of the left kidney. There is no hydronephrosis. The ureters are of normal course and caliber and can be followed to the bladder without evidence of obstruction. There is no bowel wall thickening or dilation present. The appendix is normal. The vascular structures normal course and caliber. There is no adenopathy present. The bladder and uterus are normal. There is no free fluid. The osseous structures are normal. Impression: 1. Punctate nonobstructing bilateral intrarenal calculi. 2. Status post cholecystectomy. 3. No bowel wall thickening or dilation. Normal appendix. Electronically signed on Apr 26, 2018 11:19:53 PM CDT by: Darrel AMAYA
== END 2018-04-27 00:21 | disposition home or self-care (01) ==
LOC: ED 21:48
DX: N20.0 Calculus of kidney (principal); E11.65 Type 2 diabetes mellitus with hyperglycemia; Z79.4 Long term (current) use of insulin
CPT/HCPCS: 74176; 80053; 83690; 84703; 85025; 93005; J1815; J1885; J2405; J7030; 96365; 96375; 99284; S1016

== ENCOUNTER 2018-05-29 12:46 | Outpatient (CLI) | payer OTHER ==
--- NOTE | 2018-05-29 14:50 | OP Clinic Progress Note ---
REASON FOR VISIT: Killian Alvarado returns for follow up of systemic lupus. She states she is doing well with no joint pain, swelling, warmth, tenderness, morning stiffness, fatigue, or change in urine. At her last visit, she had a rash, so we stopped her Plaquenil and the rash has resolved. History of autoimmune hepatitis, she remains on Imuran. Diabetes, doing better. No recurrent admission for diabetic ketoacidosis. PAST MEDICAL HISTORY: 1. Diabetes. 2. Diabetic ketoacidosis. 3. Anemia. 4. Hypothyroidism. 5. Hyperlipidemia. 6. Gastroparesis. 7. Lichen planus. 8. Cholecystectomy. 9. Pancreatitis. 10. Autoimmune hepatitis. 11. Chronic immunosuppression. 12. Systemic lupus. 13. Renal lithiasis. PRESENT MEDICATIONS: 1. Imuran 50 mg once a day. 2. Fenofibrate. 3. Atorvastatin. 4. Omeprazole. 5. Levothyroxine. 6. Sertraline. 7. Levemir. 8. Humulin. ALLERGIES: She is allergic to: 1. Sulfa drugs. 2. IV contrast. 3. MRI contrast. 4. Lasix. 5. Presently, Plaquenil. She has intolerance to nonsteroidal's which cause significant gastritis and GI bleeding. REVIEW OF SYSTEMS: No fevers, chills, sweats, chest pain, shortness of breath, cough, wheezing, nausea, vomiting, or diarrhea. No mouth sores. No numbness or tingling of her extremities. No hair loss. No skin rashes. PHYSICAL EXAMINATION: VITAL SIGNS: Height: 5 feet 7 inches. Weight: 193 pounds. T: 97.7, R: 20, heart rate 75, BP: 136/87. HEENT: Sclerae are anicteric. Conjunctivae are pink. No stomatitis or glossitis. LUNGS: Clear bilaterally with no crackles or wheezing. HEART: Regular rate and rhythm. ABDOMEN: Soft and nontender. VASCULAR: No edema or cyanosis. PERIPHERAL JOINTS: No synovitis or deformities of her right and left upper extremities. DIAGNOSTIC STUDIES: Review of her recent studies on April 26, CT of the abdomen and pelvis showed non-obstructing bilateral intrarenal calculi. On April 26, white count was 7.4, hemoglobin 10.1, platelets 355,000. Creatinine 0.6, AST and ALT were 17 and 22, respectively. Urinalysis showed no protein, no blood. IMPRESSION: Systemic lupus, doing well. PLAN: No changes. I will see the patient back in August. Thank you very much. Best regards. cc: Dr. Isabell AMAYA
== END 2018-05-29 12:47 ==
LOC: RHEU 12:46
PROVIDERS: ATTEND Internal Medicine
DX: M32.9 Systemic lupus erythematosus, unspecified (principal)
CPT/HCPCS: 99213; 99214

== ENCOUNTER 2018-06-24 23:59 | Emergency (ER) | payer OTHER ==
--- NOTE | 2018-06-25 00:05 | ED Physician Documentation ---
General Adult - HISTORIAN Historian: patient - HPI Stated Complaint: abd pain Chief Complaint: General Adult Onset: hours Timing: still present Severity: moderate Further Comments: yes (Pt is a 37 yo female with abd pain. 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 Pt took 650 mg Tylenol at about noon, earlier in the day. Pt has hx chronic pancreatitis, IDDM, Autoimmune hepatitis, Lupus. See PMHx.) - ROS CONST: no problems EYES/ENT: none CVS/RESP: none GI/: abdominal pain, nausea MS/SKIN/LYMPH: none - PAST HX Past History: other (Diabetes, ketoacidosis, anemia, hypothyroidism, HLD, Gastoparesis, Lichen Planus, chornic pancreatitis, Systemic Lupus, autoimmune hepatitis, chronic immunosuppresion, Renal lithiasis.) Surgeries/Procedures: cholecystectomy Allergies/Adverse Reactions: Allergies Allergy/AdvReac Type Severity Reaction Status Date / Time latex Allergy Unknown Verified 06/25/18 01:42 Sulfa (Sulfonamide Allergy Unknown Verified 06/25/18 01:42 Antibiotics) iv contrast Allergy Unknown Uncoded 06/25/18 01:42 Home Medications: Ambulatory Orders Medication Instructions Recorded Azathioprine [Imuran] 50 mg PO D 04/26/18 Calcium Carbonate [Calcium] 600 mg PO D 04/26/18 Insulin Glargine,Hum.rec.anlog 45 units SQ HS 04/26/18 [Lantus] Insulin Regular, Human [Afrezza] 1 unit SQ DIRECTED 04/26/18 - SOCIAL HX Smoking History: cigarettes Alcohol Use: occasionally - FAMILY HX Family History: No - VITAL SIGNS Vital Signs: Vital Signs Temp Pulse Resp BP Pulse Ox 120/79 04/27/18 01:44 - REVIEWED ASSESSMENTS Nursing Assessment Reviewed: Yes Vitals Reviewed: Yes Progress - Progress Progress: NS 1 L IVF x 2 Famotidine 20 mg IV Potassium Chloride 20 mEq po x 3 Zofran 4mg IV x 2 Folate 1 mg po Rx Ferrous Sulfate 325 mg. (Iron). Take one by mouth once daily. Take with citric juice (orange juice, cranberry juice, or grapefruit juice.) Vitamin. Take one daily. Potassium Chloride 20 mEq. Take one by mouth once daily. Follow up with Dr. Mukherjee in one week about , anemia, and abdominal pain. General Adult Physical Exam - PHYSICAL EXAM GENERAL APPEARANCE: mild distress EENT: pharynx normal NECK: normal inspection, supple RESPIRATORY: no resp distress, chest non-tender, breath sounds normal CVS: reg rate & rhythm, heart sounds normal ABDOMEN: soft, normal bowel sounds, tenderness (epigastric) RECTAL: other (hemocult inconclusive) BACK: normal inspection, no CVA tenderness SKIN: warm/dry, normal color EXTREMITIES: non-tender, normal range of motion, no evidence of injury, no edema NEURO: oriented X3, motor nml, sensation nml Discharge Clincal Impression: Microcytic anemia, Hypokalemia Abdominal pain Qualifiers: Abdominal location: epigastric Qualified Code(s): R10.13 - Epigastric pain Qualifiers: Weeks of gestation: less than 8 weeks Qualified Code(s): Z3A.01 - Less than 8 weeks gestation of Referrals: Isabell Mukherjee MD [Primary Care Provider] - Condition: Stable Disposition: 01 HOME, SELF-CARE Decision to Admit: NO Decision Time: 05:07
[2018-06-25] MEDS ORDERED: 0.9 % SODIUM CHLORIDE 1,000 ML IV ONE ×2 (00:51→02:13)
[2018-06-25 00:56] LABS: BASOPHILS % 0.3 (0.0-1.5); EOSINOPHILS % 5.8 % (0.0-6.8); MEAN CORPUSCULAR HEMOGLOBIN 21.4 pg (28.0-34.0); MONOCYTES % 8.2 % (0.0-11.0); NEUTROPHILS # 5.3 # k/uL (1.4-7.7)
[2018-06-25 01:10] LABS: eGFR (Non-African) > 60
[2018-06-25] MEDS ORDERED: FAMOTIDINE/PF 20 MG/2 ML VIAL IVP ONE (01:46)
[2018-06-25] MEDS ORDERED: ONDANSETRON HCL/PF 4 MG/ 2ML VIAL IVP ONE (01:49)
[2018-06-25] MEDS: ONDANSETRON HCL/PF 4 MG/ 2ML VIAL IM ONE ×2 (01:56)
[2018-06-25] MEDS ORDERED: POTASSIUM CHLORIDE 20 MEQ TABLET.ER PO ONE ×3 (02:11→04:59)
[2018-06-25] MEDS ORDERED: FOLIC ACID 1 MG TABLET PO ONE (02:50)
[2018-06-25 05:12] VITALS: BP 132/85
[2018-06-25] MEDS ORDERED: FOLIC ACID 1 MG TABLET PO SCH (09:00)
[2018-06-25 09:11] LABS: APPEARANCE,URINE CLOUDY (CLEAR); COLOR,URINE YELLOW (YELLOW); OCCULT BLOOD,URINE 2+ (NEGATIVE); PH URINE 5.5 (5.0 - 8.0); UROBILINOGEN URINE 0.2 Eu (0.2-1.0)
== END 2018-06-25 05:09 | disposition home or self-care (01) ==
LOC: ED 23:59
DX: E87.6 Hypokalemia (principal); D50.9 Iron deficiency anemia, unspecified; R10.13 Epigastric pain; Z3A.01 Less than 8 weeks gestation of pregnancy
CPT/HCPCS: 80053; 81002; 83690; 84703; 85025; A9270; J2405; J7030; 96365; 96366; 96375; 99284; S0028; S1016

== ENCOUNTER 2018-06-30 11:08 | Outpatient (CLI) | payer OTHER ==
--- NOTE | 2018-07-01 05:16 | Diagnostic Imaging Report ---
VINCENZO MATHEWS [facility] [address] [facility] [address] 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 The uterus measures 8.9 x 5.5 x 6.7 cm in greatest dimension. The endometrium measures 1.3 cm in thickness. There is a small amount of fluid within the endometrium. The uterus is anteverted. No gestational sac is seen. The myometrium is unremarkable. No free fluid is noted. The left ovary is not visualized. The right ovary measures 1.9 x 0.9 x 0.9 cm in greatest dimension. The right ovary appears normal and demonstrates normal flow. Impression: There is a small slip of fluid within the endometrium. The endometrium measures 13 mm in thickness. No gestational sac is identified. Normal right ovary. Nonvisualization of the left ovary. No free fluid in the pelvis. In the setting of a positive test, the current findings are indeterminate and could represent a very early intrauterine gestation. The possibility of ectopic would not be excluded. Please correlate with a quantitative beta hCG. Electronically signed on Jun 30, 2018 6:59:21 PM CDT by: Keara AMAYA
--- NOTE | 2018-07-01 05:16 | Diagnostic Imaging Report ---
VINCENZO MATHEWS [facility] [address] [facility] [address] 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 The uterus measures 8.9 x 5.5 x 6.7 cm in greatest dimension. The endometrium measures 1.3 cm in thickness. There is a small amount of fluid within the endometrium. The uterus is anteverted. No gestational sac is seen. The myometrium is unremarkable. No free fluid is noted. The left ovary is not visualized. The right ovary measures 1.9 x 0.9 x 0.9 cm in greatest dimension. The right ovary appears normal and demonstrates normal flow. Impression: There is a small slip of fluid within the endometrium. The endometrium measures 13 mm in thickness. No gestational sac is identified. Normal right ovary. Nonvisualization of the left ovary. No free fluid in the pelvis. In the setting of a positive test, the current findings are indeterminate and could represent a very early intrauterine gestation. The possibility of ectopic would not be excluded. Please correlate with a quantitative beta hCG. Electronically signed on Jun 30, 2018 6:59:21 PM CDT by: Keara AMAYA
== END 2018-06-30 13:24 ==
LOC: RAD 11:08
PROVIDERS: ATTEND Family Medicine
DX: O09.90 Supervision of high risk pregnancy, unspecified, unspecified trimester (principal)
CPT/HCPCS: 76830; 76856; 84702

== ENCOUNTER 2018-08-28 08:11 | Outpatient (CLI) | payer OTHER ==
--- NOTE | 2018-09-09 09:11 | OP Clinic Progress Note ---
REASON FOR VISIT: Killian Alvarado returns for follow up on her systemic lupus. She is doing well. She is having some pain. She also has a history of autoimmune hepatitis for which she was on Imuran. She is now 15 weeks . Imuran has been stopped. She has been started on Plaquenil. Otherwise, no new medications. No new medical problems. She has been seen by Dr. Roblero at [facility] for high-risk OB. IMPRESSION: 1. Autoimmune hepatitis. 2. Systemic lupus. 3. , stable. PLAN: 1. Continue Plaquenil. 2. I will see her back in 3 months. Thank you very much. Best regards, cc: Dr. Isabell AMAYA
== END 2018-08-28 08:18 ==
LOC: RHEU 08:11
PROVIDERS: ATTEND Internal Medicine
DX: M32.9 Systemic lupus erythematosus, unspecified (principal)
CPT/HCPCS: 99212

== ENCOUNTER 2018-12-10 16:32 | Emergency (ER) | payer OTHER ==
--- NOTE | 2018-12-10 16:40 | ED Physician Documentation ---
General Adult - HISTORIAN Historian: patient - HPI Stated Complaint: abdmoinal pain x 7 days Chief Complaint: Abdominal Pain Onset: days ago (7) Timing: still present Severity: moderate Further Comments: yes (She reports she has a history of pancreatitis and she feels this is the same type of pain. She reports epigastric pain x 1 week and she notes the pain is just not getting better. She has not tried any OTC meds - she does take prilosec daily. Denies a fever although feels she is always cold. She is eating significantly less so she has not been taking her adjustable insulin. She has had nausea - denies any vomiting. She has one episode of regular bowel movement this am and after lunch one episode of diarrhea. She has no rash. No sick contacts. Denies any urinary issues.) - ROS CONST: no problems EYES/ENT: none CVS/RESP: none GI/: abdominal pain, nausea, diarrhea (x1). denies: problems urinating, vomiting MS/SKIN/LYMPH: none NEURO/PSYCH: denies: headache - PAST HX Past History: other (liver disease, IDDM, ) Other History: diabetes Type 1 Surgeries/Procedures: BTL Immunizations: UTD Allergies/Adverse Reactions: Allergies Allergy/AdvReac Type Severity Reaction Status Date / Time latex Allergy Unknown Verified 06/25/18 01:42 Sulfa (Sulfonamide Allergy Unknown Verified 06/25/18 01:42 Antibiotics) NSAIDS (Non-Steroidal Allergy Verified 12/10/18 16:57 Anti-Inflamma iv contrast Allergy Unknown Uncoded 06/25/18 01:42 Home Medications: Ambulatory Orders Medication Instructions Recorded Insulin Glargine,Hum.rec.anlog 45 units SQ HS 04/26/18 [Lantus] Insulin Regular, Human [Afrezza] 1 unit SQ DIRECTED 04/26/18 - SOCIAL HX Smoking History: non-smoker Alcohol Use: none Drug Use: none - FAMILY HX Family History: No - VITAL SIGNS Vital Signs: Vital Signs Temp Pulse Resp BP Pulse Ox 132/85 06/25/18 05:09 - REVIEWED ASSESSMENTS Nursing Assessment Reviewed: Yes Vitals Reviewed: Yes Progress - Progress Progress: 1753: Discussed current results and she states nausea is "a little" better. She is talking with family at bedside. Will assist with epigastric pain. She is agreeable DG 1844: discussed results and she states she cannot take Toradol due to "it doubles me over when I take it" - she states she has had kidney stones in the past and hydromorphone and fentanyl are the only meds that helped DG 190: reports pain is "so much better" she states she understands how to strain urine (she has had stone in the past) DG 1904: care turned over to [facility] ED Results Lab/Radiology - Radiology Radiology Impressions: CT ABDOMEN AND PELVIS WITHOUT CONTRAST HISTORY: Mid abdominal pain. Chronic pancreatitis. Lupus. Autoimmune hepatitis. Contrast allergy. TECHNIQUE: Helically acquired images were obtained from the hemidiaphragms to the pelvic floor without IV contrast. FINDINGS: On these images without IV contrast, which limits solid organ evaluation, the liver, spleen, pancreas, adrenal glands and the left kidney are unremarkable. There is a 1-2 mm calyceal stone of the right kidney. There is no hydronephrosis. The abdominal aorta is normal in caliber. Small and large bowel loops are normal in caliber. There is a quite small, fat containing periumbilical hernia. The uterus is mildly enlarged. The bladder and adnexal structures are unremarkable. There is no free fluid in the abdomen or pelvis. The appendix is not discretely visualized but there are no secondary findings to suggest acute appendicitis. No osseous abnormalities are noted. Lungs are clear. Impression: Status post cholecystectomy. 1-2 mm calyceal stone midpole right kidney. No hydronephrosis. No ureteral stones. No acute intra-abdominal or intrapelvic abnormalities are noted. Mildly enlarged uterus. Electronically signed on Dec 10, 2018 6:36:56 PM CDT by: Keara Horne General Adult Physical Exam - PHYSICAL EXAM GENERAL APPEARANCE: no distress EENT: eye inspection normal, pharynx normal, no signs of dehydration NECK: normal inspection RESPIRATORY: no resp distress, chest non-tender, breath sounds normal CVS: reg rate & rhythm, heart sounds normal, equal pulses, no murmur ABDOMEN: soft, normal bowel sounds, no distension, tenderness (with palpation epigastric area ) BACK: normal inspection, no CVA tenderness SKIN: warm/dry, normal color EXTREMITIES: non-tender NEURO: oriented X3 Discharge Clincal Impression: Kidney stone Referrals: Isabell Mukherjee MD [Primary Care Provider] - 2 Days Comments: 1. Flomax 0.4 mg take 1 by mouth daily 2. Strain urine 3. Hydrocodone 5/300 take 1 by mouth every 6 hours as needed for pain 4. Increase fluids 5. Zofran 4 mg take 1 by mouth every 8 hours as needed for nausea 6. Follow up with PCP In 2 days 7. Return to ER for any increasing concerns Condition: Stable Disposition: 01 HOME, SELF-CARE Decision to Admit: NO Date of Decison to Admit: 12/10/18 Decision Time: 19:04
[2018-12-10] MEDS: 0.9 % SODIUM CHLORIDE 1,000 ML IV ONE (17:20)
[2018-12-10] MEDS: ONDANSETRON HCL/PF 4 MG/ 2ML VIAL IVP ONE (17:20)
[2018-12-10 17:21] LABS: BASOPHILS % 0.5 % (0.0-1.5); EOSINOPHILS % 19.1 % (0.0-6.8); MEAN CORPUSCULAR HEMOGLOBIN 23.8 pg (28.0-34.0); MONOCYTES % 6.4 % (0.0-11.0); NEUTROPHILS # 2.1 # k/uL (1.4-7.7)
[2018-12-10 17:24] LABS: eGFR (Non-African) > 60
[2018-12-10 17:47] LABS: APPEARANCE,URINE CLOUDY (CLEAR); COLOR,URINE YELLOW (YELLOW)
[2018-12-10 17:48] LABS: OCCULT BLOOD,URINE NEGATIVE (NEGATIVE); PH URINE 7.5 (5.0 - 8.0); UROBILINOGEN URINE 0.2 Eu (0.2-1.0)
[2018-12-10] MEDS: PANTOPRAZOLE SODIUM 80 MG in 0.9 % SODIUM CHLORIDE 50 ML IV ONE (18:04)
[2018-12-10] MEDS: fentaNYL CITRATE/PF 100 MCG/2 ML INJ. IVP ONE (18:50)
[2018-12-10] MEDS: TAMSULOSIN HCL 0.4 MG CAP.ER.24H PO ONE (18:53)
[2018-12-10 20:31] VITALS: BP 126/76
--- NOTE | 2018-12-10 22:45 | Diagnostic Imaging Report ---
LAN HOSKINS [facility] [address] [facility] [address] [place], [place]. [address] Report Submission Date: Dec 10, 2018 6:36:56 PM CDT Patient Study Name: JESSICA HIGH Date: Dec 10, 2018 5:37:32 PM CDT Modality Type: CT\SR Gender: F Description: CT ABD PELVIS W/O CO : 80 Institution: [facility] Physician: LAN HOSKINS CT ABDOMEN AND PELVIS WITHOUT CONTRAST HISTORY: Mid abdominal pain. Chronic pancreatitis. Lupus. Autoimmune hepatitis. Contrast allergy. TECHNIQUE: Helically acquired images were obtained from the hemidiaphragms to the pelvic floor without IV contrast. FINDINGS: On these images without IV contrast, which limits solid organ evaluation, the liver, spleen, pancreas, adrenal glands and the left kidney are unremarkable. There is a 1-2 mm calyceal stone of the right kidney. There is no hydronephrosis. The abdominal aorta is normal in caliber. Small and large bowel loops are normal in caliber. There is a quite small, fat containing periumbilical hernia. The uterus is mildly enlarged. The bladder and adnexal structures are unremarkable. There is no free fluid in the abdomen or pelvis. The appendix is not discretely visualized but there are no secondary findings to suggest acute appendicitis. No osseous abnormalities are noted. Lungs are clear. Impression: Status post cholecystectomy. 1-2 mm calyceal stone midpole right kidney. No hydronephrosis. No ureteral stones. No acute intra-abdominal or intrapelvic abnormalities are noted. Mildly enlarged uterus. Electronically signed on Dec 10, 2018 6:36:56 PM CDT by: Keara AMAYA
== END 2018-12-10 19:24 | disposition home or self-care (01) ==
LOC: ED 16:32
DX: N20.0 Calculus of kidney (principal)
CPT/HCPCS: 36415; 74176; 80053; 81002; 81025; 83690; 84484; 85025; 93005; 96365; 96375; 99284; 99285; J2405; J3010; J7030; S1016

== ENCOUNTER 2019-05-03 16:18 | Outpatient (CLI) | payer OTHER ==
[2019-04-08 15:32] VITALS: BP 128/87
[2019-05-03 16:56] LABS: A1C 7.9 % (<5.7)
[2019-05-03 17:34] LABS: eGFR (Non-African) > 60
[2019-05-03 17:35] LABS: HDL 39 mg/dL (>40)
== END 2019-05-03 16:20 ==
LOC: LAB 16:18
PROVIDERS: ATTEND Family Medicine
DX: E11.9 Type 2 diabetes mellitus without complications (principal)
CPT/HCPCS: 36415; 80053; 80061; 83036; 84443; 85027